=== PATIENT | female | born 1980 | race Hispanic/Latino ===

== ENCOUNTER 2022-04-15 20:40 | Emergency (ER) | payer BC | END 2022-04-15 23:33 | disposition home or self-care (01) | LOC: CSHERS 20:40 | DX: M77.31 Calcaneal spur, right foot (principal); M71.21 Synovial cyst of popliteal space [Baker], right knee ==

== ENCOUNTER 2023-08-25 08:01 | Day surgery (SDC) | payer BC ==
[2023-08-21 13:57] VITALS: BMI 39.9
[2023-08-25] MEDS ORDERED: Lidocaine 2% MPF 10 ML AMP (For Epidural Use) ONE (09:16)
[2023-08-25] MEDS ORDERED: PROPOFOL 40 ML ONE (09:16)
== END 2023-08-25 11:13 | disposition home or self-care (01) ==
LOC: CSHSDC 08:01
PROVIDERS: ATTEND Internal Medicine Gastroenterology
PROC: 0DJD8ZZ Inspection of Lower Intestinal Tract, Via Natural or Artificial Opening Endoscopic (ICD-10-PCS; principal; 2023-08-25)
DX: Z12.11 Encounter for screening for malignant neoplasm of colon (principal); K64.8 Other hemorrhoids; K21.9 Gastro-esophageal reflux disease without esophagitis; E66.9 Obesity, unspecified; Z68.39 Body mass index [BMI] 39.0-39.9, adult; Z79.899 Other long term (current) drug therapy
CPT/HCPCS: J2704

== ENCOUNTER 2025-07-13 09:03 | Outpatient (CLI) | payer BC | END 2025-07-13 09:04 | disposition home or self-care (01) | LOC: CSHMAMMO 09:03 | PROVIDERS: ATTEND Obstetrics & Gynecology | DX: R92.8 Other abnormal and inconclusive findings on diagnostic imaging of breast (principal); N60.01 Solitary cyst of right breast | CPT/HCPCS: G0279 ==